=== PATIENT | male | born 1940 | race Caucasian/White ===

== ENCOUNTER 2017-03-04 20:12 | Emergency (ER) | payer MEDICARE, OTHER ==
[~2017-03-04] VITALS: Ht 180.3 cm; Wt 83.9 kg
--- NOTE | ~2017-03-04 | CR20 ---
[facility] A Service of [facility] RADIOLOGY TEXT RESULTS PATIENT: CANDIDA PEREZ JR. LOCATION: [facility] : 38 UNIT #: [id number] AGE: [address]: Brett Horner MD SEX: M ORDER DR: [id number] [facility] [address] [place], [place] [address] [id number] E MR#: [id number] Acc #: [id number] NAME: CANDIDA PEREZ JR. : 1940 SEX: M STUDY DATE/TIME: 03/04/2017 22:12 UNIT: [facility] ROOM: STUDY DESCRIPTION: CR Ankle Min 3 Views Lt Attending Physician: Brett Horner M.D. Ordering Physician: Brett Horner M.D. Primary Care Physician: Judy Huston M.D. MEDICAL IMAGING REPORT This report is preliminary unless electronic signature is present EXA, Left ankle HISTORY Ankle pain and swelling laterally for the past 3 days with no known trauma TECHNIQUE Three views of the ankle were obtained. FINDINGS Degenerative changes are seen at the ankle joint especially medially but also on the lateral side. There is no evidence of fracture, subluxation or dislocation. No osteochondral fragments are seen over the dome of the talus. 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 No acute bony abnormalities are seen. Dictated by... Brett Hinds M.D. THIS IS AN ELECTRONICALLY VERIFIED REPORT Brett Hinds M.D. at 03/06/2017 7:09 AM RON/hilda TD: 03/05/2017 08:48 JOB #: [id number] MEDICAL IMAGING REPORT Page 1 of 1 COPY
--- NOTE | ~2017-03-04 | US85 ---
[facility] A Service of [facility] RADIOLOGY TEXT RESULTS PATIENT: CANDIDA PEREZ JR. LOCATION: [facility] UNIT : 38 UNIT #: [id number] AGE: [address]: Brett Horner MD SEX: M ORDER DR: [id number] [facility] [address] [place], [place] [address] [id number] E MR#: [id number] Acc #: [id number] NAME: CANDIDA PEREZ JR. : 1940 SEX: M STUDY DATE/TIME: 03/04/2017 22:40 UNIT: [facility] ROOM: STUDY DESCRIPTION: [employer] Attending Physician: Bertt Horner M.D. Ordering Physician: Brett Horner M.D. Primary Care Physician: Judy Huston M.D. MEDICAL IMAGING REPORT This report is preliminary unless electronic signature is present EXAM Venous Doppler ultrasound examination, left leg, 03/04/2017. HISTORY 77-year-old male in the ED complaining of a 3-day history of left lower extremity swelling and pain. 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 TECHNIQUE Venous Doppler ultrasound examination of the left leg was performed using hernandez-scale, spectral Doppler, and color flow Doppler ultrasound imaging. FINDINGS Chronic-appearing nonocclusive DVT changes are noted within segments of the left superficial vein proximally, distally, and in its midportion. This is seen as a small amount of somewhat echogenic mural thrombus and a somewhat narrow and irregular vein lumen. No definite acute occlusive DVT is identified. The examination is otherwise negative. No additional DVT changes elsewhere within the left leg from the groin to the lower calf. Greater saphenous vein is patent. IMPRESSION 1. Chronic-appearing DVT changes scattered within the left superficial femoral vein. 2. The examination is otherwise negative. No acute occlusive DVT is identified. Dictated by... Rajendra Diggs M.D. THIS IS AN ELECTRONICALLY VERIFIED REPORT [facility] A Service of [facility] RADIOLOGY TEXT RESULTS PATIENT: CANDIDA PEREZ JR. [id number] 38 UNIT #: [id number] AGE: [address]: Brett Horner MD SEX: M ORDER DR: Rajendra Diggs M.D. at 03/05/2017 9:45 PM RGW/mian TD: 03/05/2017 10:17 JOB #: [id number] MEDICAL IMAGING REPORT Page 1 of 1 COPY
[~2017-03-04 20:12] MED LIST: CLEOCIN HCL300 M1 PO
[2017-03-04] MEDS ORDERED: ZESTRIL10 M1 PO (22:07)
[2017-03-04] MEDS ORDERED: COUMADIN5 MG PO (22:08)
[2017-03-04] MEDS ORDERED: HYDROCHLOROTH12.5 MG PO (22:08)
[2017-03-04] MEDS ORDERED: K-DUR10 MEQ PO (22:09)
[2017-03-04] MEDS ORDERED: VITAMIN D1000 UNIT PO (22:10)
[2017-03-04] MEDS ORDERED: FLOVENT DISKUS50 MCG (22:10)
[2017-03-04] MEDS ORDERED: MAGNESIUM500 MG PO (22:10)
[2017-03-04] MEDS ORDERED: IMODIUM A-D1 MG/5 ML PO (22:11)
[2017-03-04 22:34] LABS: BASOPHIL% 0.4 % (0-2.5); EOSINOPHIL% 0.2 % (0.0-7.0); HEMATOCRIT 33.9 % (38.0-50.0); HEMOGLOBIN 11.2 gm/dL (13.0-16.0); LYMPHOCYTE# 1.5 X10e3 (1.0-3.5); LYMPHOCYTE% 14.2 % (17.0-45.0); MEAN CELL VOLUME 90.2 FL (83-96); MEAN CORPUSCULAR HEMOGLOBIN 29.8 PG (28-34); MEAN PLATELET VOLUME 7.4 FL (6.5-11.5); MONOCYTE# 0.9 X10e3 (0-1.0); MONOCYTE% 8.2 % (3.0-12.0); NEUTROPHIL# 8.1 X10e3 (1.5-7.1); PLATELET COUNT 296 X10e3 (140-420); RED BLOOD COUNT 3.76 X10e (3.90-5.60); RED CELL DISTRIBUTION WIDTH 14.4 % (11.0-15.5); WHITE BLOOD COUNT 10.5 X10e3 (4.0-10.5)
[2017-03-04 22:35] LABS: DIFF IND NO
[2017-03-04 22:51] LABS: BUN/CREATININE RATIO 12.3; CALCIUM SERUM 7.9 mg/dL (8.4-10.2); CREATININE SERUM 1.3 mg/dL (0.6-1.4); GLOM FILT RATE Estimated 51.9 mL/min (>60); URIC ACID 8.9 mg/dL (2.6-7.2)
[2017-03-04 22:54] LABS: POTASSIUM 2.4 mmol/L (3.5-5.1)
== END 2017-03-05 00:17 | disposition home or self-care (01) ==
LOC: CED 20:12
PROVIDERS: Emergency Medicine
DX: M13.872 Other specified arthritis, left ankle and foot (principal); M10.9 Gout, unspecified; E87.6 Hypokalemia
CPT/HCPCS: 36415; 73610; 80048; 84550; 85025; 85610; 85652; 86140; 93971; 99284